=== PATIENT | male | born 1950 | race Caucasian/White ===

== ENCOUNTER 2019-04-02 11:28 | Inpatient (IN) | payer OTHER ==
[~2019-04-02] VITALS: Ht 185.4 cm; Wt 79.5 kg
[~2019-04-02 11:28] MED LIST: ASPIRIN CHEWABL81 MG PO; DOXYCYCLINE HY100 M5 PO; LOPRESSOR25 MG PO; Percocet 325 MG1 TAB PO; RYTHMOL SR425 MG PO; VERAPAMIL HCL120 MG PO; VERAPAMIL240 MG PO
[2019-04-02 11:33] VITALS: BP 131/73
[2019-04-02 11:52] LABS: BASO % 0.3 % (0.0-1.0); EOS # 0.1 10*3/uL (0.0-0.4); EOS % 0.7 % (1.0-4.0); HEMATOCRIT 43.2 % (42.0-52.0); HEMOGLOBIN 14.4 g/dl (14.0-18.0); LYMPH # 0.9 10*3/uL (1.3-4.4); MEAN CELL VOLUME 88.7 fl (80.0-94.0); MEAN CORPUSCULAR HGB 29.6 pg (27.0-31.0); MEAN CORPUSCULAR HGB CONC 33.3 g/dl (33.0-37.0); MEAN PLATELET VOLUME 9.9 fl (9.6-12.3); MONO # 0.6 10*3/uL (0.1-1.0); MONO % 4.9 % (3.0-9.0); NEUT # 10.5 10*3/uL (2.3-7.9); NEUT % 86.2 % (47.0-73.0); PLATELET COUNT AUTOMATED 303 10*3/uL (130-400); RED BLOOD COUNT 4.87 10*6/uL (4.50-5.90); RED CELL DISTRI WIDTH 13.8 % (0-14.5); WHITE BLOOD COUNT 12.1 10*3/uL (4.8-10.8)
[2019-04-02 12:02] LABS: INTERNATIONAL NORM RATIO 0.9 (2.0-3.5)
[2019-04-02 12:10] LABS: ALBUMIN 3.2 gm/dl (3.1-4.5); ALKALINE PHOSPHATASE 75 U/L (45-117); BUN 22 mg/dl (7-24); CHLORIDE 99 mmol/L (98-107); CREATININE 1.01 mg/dL (0.70-1.30); POTASSIUM 3.5 mmol/L (3.5-5.1); SGOT/AST 16 IU/L (3-35); SGPT/ALT 18 U/L (12-78); SODIUM 134 mmol/L (136-145); TOTAL PROTEIN 6.8 gm/dL (6.4-8.2)
--- NOTE | 2019-04-02 12:11 | NUR ---
PT INSISTED ON WALKING TO BATHROOM NO DISTRESS NOTED WENT WITHOUT OXYGEN ASSISTED BACK TO BED OXYGEN RE-APPLIED FAMILY IN ROOM VOICES NO COMPLAINATS CALL LIGHT IN REACH. PULSE OX 93% ON 2L
[2019-04-02 12:12] LABS: TROPONIN I < 0.015 ng/ml (<0.045)
--- NOTE | 2019-04-02 12:16 | NUR ---
[place] 2.7 DR NOTIFIED
--- NOTE | 2019-04-02 12:29 | NUR ---
RESPIRATORY CALLED AND NOTIFIED WE NEED BREATHING TREATMENT IN ROOM 20
[2019-04-02 13:30] VITALS: BP 128/72
--- NOTE | 2019-04-02 13:30 | NUR ---
PT FAMILY BROUGHT HIM LUNCH FROM [facility] PT IN BED VOICES NO COMPLAINTS EATING WITH SONS CALL LIGHT IN REACH.
--- NOTE | 2019-04-02 13:42 | NUR ---
dr marin in to speak with pt family in room
[2019-04-02 14:56] VITALS: BP 126/78
[2019-04-02 15:05] VITALS: BP 116/64
--- NOTE | 2019-04-02 15:05 | NUR ---
A 68, admitted to , under the services of JAMESON Gonzales DO with a diagnosis of PNEUMONITIS,. Chief complaint is SHORTNESS OF BREATH. Patient arrived via bed from ER. Monitor applied. Initial assessment completed. Vital signs taken and recorded. JAMESON GONZALES DO notified of admission to the unit. Orders received. See assessment for past medical history, medications and allergies. Patient and/or family oriented to unit. [facility] visitation policy reviewed. Clothing/patient valuable form completed. DEBRA DAVIS
--- NOTE | 2019-04-02 15:15 | NUR ---
PATIENT REFUSING FLU AND PNEUMONIA VACCINES. STATES "HE DOESNT WANT ANY". WILL CONTINUE TO MONITOR.
--- NOTE | 2019-04-02 15:30 | NUR ---
NOTIFIED DOV MARSH UNABLE TO UPDATE PATIENT MED REC BECAUSE PATIENT DOES NOT KNOW HOW MUCH MEDICATION (MILLIGRAMS) HE TAKES. PATIENT ALSO WISHES TO BE A DNRCC. NOTIFIED DOV DNRCC PAPERWORK STILL NEEDS SIGNED. STATES SHE WILL SIGN IT TOMORROW MORNING. 2 NURSES SIGNED DNRCC PAPER. VALID FOR 24HOURS. WILL CONTINUE TO MONITOR.
[2019-04-02 16:00] VITALS: BP 116/64
--- NOTE | 2019-04-02 16:29 | NUR ---
PATIENT OFF FLOOR FOR CT VIA WHEELCHAIR.
--- NOTE | 2019-04-02 16:50 | NUR ---
PATIENT BACK ON FLOOR FROM CT.
[2019-04-02] MEDS ORDERED: TRAMADOL HCL50 MG PO (17:49)
--- NOTE | 2019-04-02 17:54 | NUR ---
NOTIFIED DR. WEBB PATIENT MED REC IS UP TO DATE PER PATIENTS DAUGHTER. PATIENT ALSO WANTING NICOTINE PATCH. PER DR. WEBB PUT ORDER IN FOR NICOTINE PATCH.
--- NOTE | 2019-04-02 18:36 | NUR ---
PATIENT MEDICATED WITH NORCO FOR COMPLAINTS BILATERAL RIB PAIN. RATES 01/10. WILL CHECK EFFECTIVENESS.
--- NOTE | 2019-04-02 19:30 | NUR ---
Pt started on flutter valve. Encouraged self-use 10 breaths an hour.
[2019-04-02 20:00] VITALS: BP 128/71
--- NOTE | 2019-04-02 21:08 | NUR ---
PATIENT IS RESTING IN BED WITH EASY AND REGULAR RESPERS ON 2L O2 VIA NC. ASSESSMENT IS COMPLETE WITH NO C/O OR S/S OF DISTRESS NOTED AT THIS TIME. BED IS LOW, LOCKED, ALARMED, AND CALL LIGHT IS WITHIN REACH. WILL CONTNINUE TO MONITOR SEE SHIFT ASSESSMENT.
--- NOTE | 2019-04-02 21:08 | NUR ---
PRN NORCO GIVEN AT THIS TIME FOR C/O GENERALIZED PAIN. PATIENT TOLERATED WELL, CALL LIGHT IS WITHIN REACH. WILL MONITOR EFFECT.
--- NOTE | 2019-04-02 22:00 | NUR ---
PRN NORCO SEEMS EFFECTIVE, PATIENT IS SLEEPING WITH EASY AND REGULAR RESPERS ON ROOM AIR. CALL LIGHT IS WITHIN REACH.
[2019-04-03] VITALS: BP 132/72
[2019-04-03 06:59] LABS: BASO % 0.1 % (0.0-1.0); EOS % 0.1 % (1.0-4.0); HEMATOCRIT 39.2 % (42.0-52.0); HEMOGLOBIN 13.1 g/dl (14.0-18.0); LYMPH # 0.8 10*3/uL (1.3-4.4); LYMPH % 7.3 % (27.0-41.0); MEAN CELL VOLUME 88.5 fl (80.0-94.0); MEAN CORPUSCULAR HGB 29.6 pg (27.0-31.0); MEAN CORPUSCULAR HGB CONC 33.4 g/dl (33.0-37.0); MEAN PLATELET VOLUME 10.5 fl (9.6-12.3); MONO # 0.6 10*3/uL (0.1-1.0); MONO % 5.3 % (3.0-9.0); NEUT # 9.2 10*3/uL (2.3-7.9); NEUT % 86.4 % (47.0-73.0); PLATELET COUNT AUTOMATED 297 10*3/uL (130-400); RED BLOOD COUNT 4.43 10*6/uL (4.50-5.90); RED CELL DISTRI WIDTH 13.8 % (0-14.5); WHITE BLOOD COUNT 10.6 10*3/uL (4.8-10.8)
[2019-04-03 07:21] LABS: ALBUMIN 2.8 gm/dl (3.1-4.5); ALKALINE PHOSPHATASE 66 U/L (45-117); BUN 17 mg/dl (7-24); CHLORIDE 104 mmol/L (98-107); CREATININE 0.87 mg/dL (0.70-1.30); PHOSPHOROUS 4.3 mg/dL (2.5-4.9); SGOT/AST 13 IU/L (3-35); SGPT/ALT 18 U/L (12-78); SODIUM 137 mmol/L (136-145); TOTAL PROTEIN 6.2 gm/dL (6.4-8.2)
[2019-04-03 08:00] VITALS: BP 128/74
--- NOTE | 2019-04-03 10:33 | NUR ---
PATIENT STATES IF HE IS NOT GOING TO BE DISCHARGED TODAY, HE IS LEAVING AMA WITH HIS KIDS GET HERE. DOV MARSH AWARE. WILL CONTINUE TO MONITOR.
--- NOTE | 2019-04-03 11:06 | NUR ---
CALIXTO BENJAMIN FROM RESPIRATORY PATIENT DOES NOT QUALIFY FOR HOME O2.
[2019-04-03 12:00] VITALS: BP 124/92
--- NOTE | 2019-04-03 12:20 | NUR ---
patient tested for use of home oxygen. during ambulation the patient desatted down to an SPO2: 88% for a second and then quickly returned to 91%. sjow minimal signs of shortness of breathe. during the test his heart rate did increase to 124 bpm, and varied from 113 to 124. with a history of a- fibliration. patient did not qualify. blood pressure:127/75, heart rate:114< respiratory rate:22 spo2:91%
--- NOTE | 2019-04-03 13:27 | NUR ---
Seater Grinder in to talk to patient. Patient states lives at HOME with ALONE. There are 2 steps in the home. Physician: DIEGO [facility]acy: [facility] Home health services: NONE Patient's level of ADLs: INDEPENDENT Patient has working utilities: YES DME: NONE Follow-up physician's appointment after d/c: WILL BE MADE BY HOSPITALIST NURSE DIRECTOR ON DISCHARGE Does patient want to access PORTAL?: NO Discharge plan PT LIVES AT HOME ALONE AND STATES HE IS INDEPENDENT IN HIS CARE. TALKED TO HIM ABOUT HOME HEALTH BUT HE ADEMENTLY REFUSES, STATES I DON'T NEED THEM. STATES HE WILL RETURN HOME ON DISCHARGE WITH NO NEEDS. WILL CONTINUE TO FOLLOW. WILL HAVE A RIDE HOME.. SG MEYER
[2019-04-03] MEDS ORDERED: PREDNISONE20 M1 PO (14:36)
[2019-04-03] MEDS ORDERED: PERCOCET 5-3251 EACH PO (14:36)
[2019-04-03] MEDS ORDERED: PREDNISONE10 MG PO (14:36)
[2019-04-03] MEDS ORDERED: COLACE100 MG PO (14:36)
[2019-04-03] MEDS ORDERED: LEVAQUIN750 M1 PO (14:36)
--- NOTE | 2019-04-03 15:04 | NUR ---
Received order for hospice at home. discussed with daughter Monica and DESHAUN Aguilar. After reviewing a list of hospice agencies, patient decided on [facility] hospice. Contacted [facility] and faxed referral with brief instructions to contact daughter russ.
--- NOTE | 2019-04-03 15:31 | NUR ---
PATIENT IV REMOVED. PATIENT OFF FLOOR WITH HIS BELONGINGS. DISCHARGE INNSTRUCTIONS AND SCRIPTS WITH DAUGHTER. Discharge instructions reviewed with patient/family. Patient receptive and verbalizes understanding. Follow-up care arranged. Written instructions given to patient/family. KENNY CONNOR
== END 2019-04-03 15:31 | disposition hospice, home (50) | DRG 178 ==
LOC: ED 11:28 → 4E 14:05 → EDHOLD 14:05 → 4E 14:53
PROVIDERS: Emergency Medicine; Registered Nurse; ADMIT Internal Medicine
DX: J15.6 Pneumonia due to other Gram-negative bacteria (principal); C34.90 Malignant neoplasm of unspecified part of unspecified bronchus or lung; Z66 Do not resuscitate; M25.512 Pain in left shoulder; M25.511 Pain in right shoulder; I48.91 Unspecified atrial fibrillation; Z51.5 Encounter for palliative care; Z87.891 Personal history of nicotine dependence; Z87.01 Personal history of pneumonia (recurrent); Z82.49 Family history of ischemic heart disease and other diseases of the circulatory system; Z88.2 Allergy status to sulfonamides; Z79.82 Long term (current) use of aspirin